=== PATIENT | male | born 1960 | race Caucasian/White ===

== ENCOUNTER → 2017-12-24 16:30 | Outpatient (CLI) | payer BC, SELFPAY ==
--- NOTE | 2017-12-24 16:39 | RAD_ITS ---
STUDY: X-RAY - LEFT SHOULDER REASON FOR EXAM: Male, 57 years old. Pain TECHNIQUE: 4 view(s) of the shoulder. COMPARISON: None. FINDINGS: Normal glenohumeral articulation. 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 Normal acromion. Normal humeral head and visualized proximal humerus. The soft tissue structures are unremarkable. There is no demonstrated fracture. Normal visualized pulmonary apex. RAD/Shoulder min 2 Views IMPRESSION: No fracture. Acromioclavicular arthrosis. Electronically Signed: Devin Castañeda MD at 23:56 EDT , Service support ,
== END ==
PROVIDERS: Family Provider Family Medicine; PCP Family Medicine; Visit Provider Family Medicine
DX: M25.512 Pain in left shoulder (principal)
CPT/HCPCS: 73030